=== PATIENT | male | born 1955 | race Caucasian/White ===

== ENCOUNTER 2017-06-09 17:09 | Emergency (ER) | payer BC, MEDICAID, MEDICARE ==
[2017-06-09] MEDS ORDERED: Sodium Chloride 0.9% 1,000 ML IV SCH (17:30)
--- NOTE | 2017-06-09 17:50 | EDM.PDOC ---
ED HPI GENERAL MEDICAL PROBLEM - General Chief Complaint: General Stated Complaint: MED[facility] Time Seen by Provider: 06/09/17 17:43 Source of Information: Reports: Patient, Family History Limitations: Reports: No Limitations - History of Present Illness INITIAL COMMENTS - FREE TEXT/NARRATIVE: pt arrived after having 3 tarry looking stools yesterday and 2 today. . He had no abdomnal pain. At the same time developed multiple petache over his entire body. He has been on chemo and has had chemo in the last 2 weeks. Onset: Other ( the dark stools developed yeserday. ) Duration: Hour(s):, Getting Worse Location: Reports: Generalized, Other (pt has generalized petachae. 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 Oncologic (Cancer) History: Reports: Brain, Lung, Metastatic - Infectious Disease History Infectious Disease History: Reports: Chicken Pox - Past Surgical History HEENT Surgical History: Reports: Tonsillectomy Respiratory Surgical History: Reports: Lung Biopsies Endocrine Surgical History: Reports: Other (See Below) Other Endocrine Surgeries/Procedures: 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 Social & Family History - Tobacco Use Smoking Status *Q: Former Smoker Years of Tobacco use: 47 Used Tobacco, but Quit: Yes Month Tobacco Last Used: three years ago Second Hand Smoke Exposure: No - Caffeine Use Caffeine Use: Reports: Coffee, Soda - Alcohol Use Days Per Week of Alcohol Use: 0 - Recreational Drug Use Recreational Drug Use: No Drug Use in Last 12 Months: No Recreational Drug Type: Reports: Cocaine ED ROS GENERAL - Review of Systems Review Of Systems: See Below Constitutional: Reports: No Symptoms HEENT: Reports: No Symptoms Respiratory: Reports: Shortness of Breath Cardiovascular: Reports: Lightheadedness Endocrine: Reports: No Symptoms GI/Abdominal: Reports: Black Stool, Diarrhea, Mucous in Stool : Reports: No Symptoms Musculoskeletal: Reports: No Symptoms Skin: Reports: No Symptoms ED EXAM, GENERAL - Physical Exam Exam: See Below Free Text/Narrative:: pt arrived with a petacheal rash and he is having black and tarry stools. He hs been sob. Exam Limited By: No Limitations General Appearance: Alert, Anxious, Other ( very pale appearing. ) Ears: Normal TMs Nose: Normal Inspection Throat/Mouth: Normal Inspection Head: Atraumatic Neck: Normal Inspection Respiratory/Chest: No Respiratory Distress Cardiovascular: Regular Rate, Rhythm, Tachycardia GI/Abdominal: Soft, Non-Tender, Other ( black tarry stool is noted. ) (Male) Exam: Deferred Rectal (Males) Exam: Deferred Back Exam: Normal Inspection Extremities: Normal Inspection Neurological: Alert, Oriented, Normal Cognition Psychiatric: Anxious Course - Vital Signs Last Recorded V/S: Last Vital Signs Temp 35.5 C 06/09/17 19:36 Pulse 131 H 06/09/17 19:36 Resp 18 06/09/17 19:36 BP 90/67 06/09/17 19:36 Pulse Ox 100 06/09/17 19:32 - Orders/Labs/Meds Orders: Active Orders 24 hr Category Date Time Status Chest 1V Frontal [CR] Stat Exams 06/09/17 17:23 Taken Transfuse Red Blood Cells [COMM] Stat Oth 06/09/17 18:12 Ordered Labs: Laboratory Tests 06/09/17 06/09/17 06/09/17 Range/Units 17:21 17:21 17:21 WBC 4.5 (4.5-11.0) K/uL RBC 1.52 L (4.30-5.90) M/uL Hgb 5.1 L* D (12.0-15.0) g/dL Hct 15.1 L (40.0-54.0) % MCV 99 H (80-98) fL MCH 34 H (27-31) pg MCHC 34 (32-36) % Plt Count 5 L* (150-400) K/uL Neut % (Auto) 61 (36-66) % Lymph % (Auto) 35 (24-44) % [place] % (Auto) 1 L (2-6) % Eos % (Auto) 3 (2-4) % Baso % (Auto) 0 (0-1) % PT 11.2 (9.5-12.0) sec INR 1.04 (0.80-1.20) APTT 23.3 L (27.0-36.0) sec Sodium 139 L (140-148) mmol/L Potassium 4.0 (3.6-5.2) mmol/L Chloride 106 (100-108) mmol/L Carbon Dioxide 24 (21-32) mmol/L Anion Gap 13.0 (5.0-14.0) mmol/L BUN 50 H D (7-18) mg/dL Creatinine 1.1 (0.8-1.3) mg/dL Est Cr Clr Drug Dosing 79.36 mL/min Estimated GFR (MDRD) > 60 (>60) Glucose 160 H (74-106) mg/dL Calcium 8.2 L (8.5-10.1) mg/dL Total Bilirubin 0.4 (0.2-1.0) mg/dL AST 14 L (15-37) U/L ALT 28 (12-78) U/L Alkaline Phosphatase 79 (46-116) U/L Total Protein 5.2 L (6.4-8.2) g/dL Albumin 2.4 L (3.4-5.0) g/dL Globulin 2.8 (2.3-3.5) g/dL Albumin/Globulin Ratio 0.9 L (1.2-2.2) Blood Type Gel Antibody Screen Crossmatch 06/09/17 Range/Units 17:23 WBC (4.5-11.0) K/uL RBC (4.30-5.90) M/uL Hgb (12.0-15.0) g/dL Hct (40.0-54.0) % MCV (80-98) fL MCH (27-31) pg MCHC (32-36) % Plt Count (150-400) K/uL Neut % (Auto) (36-66) % Lymph % (Auto) (24-44) % [place] % (Auto) (2-6) % Eos % (Auto) (2-4) % Baso % (Auto) (0-1) % PT (9.5-12.0) sec INR (0.80-1.20) APTT (27.0-36.0) sec Sodium (140-148) mmol/L Potassium (3.6-5.2) mmol/L Chloride (100-108) mmol/L Carbon Dioxide (21-32) mmol/L Anion Gap (5.0-14.0) mmol/L BUN (7-18) mg/dL Creatinine (0.8-1.3) mg/dL Est Cr Clr Drug Dosing mL/min Estimated GFR (MDRD) (>60) Glucose (74-106) mg/dL Calcium (8.5-10.1) mg/dL Total Bilirubin (0.2-1.0) mg/dL AST (15-37) U/L ALT (12-78) U/L Alkaline Phosphatase (46-116) U/L Total Protein (6.4-8.2) g/dL Albumin (3.4-5.0) g/dL Globulin (2.3-3.5) g/dL Albumin/Globulin Ratio (1.2-2.2) Blood Type O POSITIVE Gel Antibody Screen Negative Crossmatch See Detail Meds: Medications Discontinued Medications Generic Name Dose Route Start Last Admin Trade Name Freq PRN Reason Stop Dose Admin Sodium Chloride 1,000 mls @ 500 mls/hr 06/09/17 17:30 06/09/17 17:39 Normal Saline IV 500 mls/hr ASDIRECTED [facility] Administration - Re-Assessments/Exams Free Text/Narrative Re-Assessment/Exam: 06/09/17 18:17 pt arrived with tarry stools and a patacheal rash. He was found to have a platlet count of 5 and a hg 5.1. He will be transfused with 2 units of packed cells. Departure - Departure Time of Disposition: 19:35 Disposition: DC/Tfer to Acute Hospital 02 Condition: Fair Clinical Impression: Cancer of right lung, Anemia, Drug-induced low platelet count, GI bleeding - Discharge Information Referrals: PCP,None [Primary Care Provider] - Forms: ED Department Discharge Care Plan Goals: transfer to [facility]. - My Orders Last 24 Hours: My Active Orders 06/09/17 17:23 Chest 1V Frontal [CR] Stat 06/09/17 18:12 Transfuse Red Blood Cells [COMM] Stat - Assessment/Plan Last 24 Hours: My Active Orders 06/09/17 17:23 Chest 1V Frontal [CR] Stat 06/09/17 18:12 Transfuse Red Blood Cells [COMM] Stat
[2017-06-09 19:37] VITALS: BP 90/67
--- NOTE | 2017-06-10 09:51 | CR ---
Portable chest Comparison: 29 July 2015. There has been removal of a left subclavian line. There has been placement of a right portacatheter in good position. There is interval increase in size of a right pleural effusion. There is volume lo ss of the right lung. Left lung is stable. The heart and vascular structures are stable. Impression: 1. Right portacatheter in good position. 2. Volume loss of the right lung. Interval increase of right pleural effusion.
== END 2017-06-09 19:40 ==
LOC: JP.ED 17:09
PROC: 30233N1 Transfusion of Nonautologous Red Blood Cells into Peripheral Vein, Percutaneous Approach (ICD-10-PCS; principal; 2017-06-09)
DX: K92.2 Gastrointestinal hemorrhage, unspecified (principal); C34.91 Malignant neoplasm of unspecified part of right bronchus or lung; C79.31 Secondary malignant neoplasm of brain; D64.9 Anemia, unspecified; D69.59 Other secondary thrombocytopenia; T45.1X5A Adverse effect of antineoplastic and immunosuppressive drugs, initial encounter; Y92.019 Unspecified place in single-family (private) house as the place of occurrence of the external cause; Z79.899 Other long term (current) drug therapy; Z87.891 Personal history of nicotine dependence
CPT/HCPCS: 36415; 36430; 71010; 80053; 85025; 85610; 85730; 86850; 86900; 86901; 86920; 86922; J7040; P9016; 96360; 96361; 99285-25